=== PATIENT | male | born 1960 | race Caucasian/White ===

== ENCOUNTER 2017-09-05 12:57 | Inpatient (IN) | payer OTHER ==
[~2017-09-05] VITALS: Ht 167.6 cm; Wt 189.8 kg
[2017-09-05] VITALS (16 sets, daily range): BP systolic 88–114; BP diastolic 36–59
[2017-09-05] MEDS ORDERED: SODIUM CHLORIDE 0.9% 1000ML 1,000 ML IV STA ×2 (13:01→15:19)
[2017-09-05] MEDS ORDERED: ALBUTEROL SULF 0.083% NEB SOLN 3 ML NEB NEB STA (13:06)
[2017-09-05] MEDS ORDERED: IPRATROPIUM BROMIDE 0.02% 2.5 ML NEB NEB STA (13:06)
[2017-09-05] MEDS ORDERED: CEFTRIAXONE SOD 1 GM VIAL IV SCH (13:15)
[2017-09-05] MEDS ORDERED: CEFTAROLINE FOSAMIL ACETATE 400 MG in SODIUM CHLORIDE 0.9% 250ML 250 ML IV ONE (13:30)
[2017-09-05 13:35] LABS: BASOPHILS # (AUTO) 0.1 (0.0-0.1); BASOPHILS % 0.6 % (0.0-1.0); HEMATOCRIT 39.3 % (38.2-49.6); HEMOGLOBIN 13.3 g/dL (14.0-18.0); LYMPHOCYTES # (AUTO) 0.5 (1.0-3.2); LYMPHOCYTES % 4.9 % (18.0-39.1); MEAN CORPUSCULAR HEMOGLOBIN 29.6 pg (28-32); MEAN CORPUSCULAR HGB CONC 33.8 g/dL (31-35); MEAN CORPUSCULAR VOLUME 87.3 fL (81-99); MONOCYTES # (AUTO) 0.7 (0.2-0.8); MONOCYTES % 7.1 % (4.4-11.3); NEUTROPHILS # (AUTO) 8.8 (2.1-6.9); NEUTROPHILS % 86.6 % (38.7-80.0); PLATELET COUNT 111 x10e3/uL (140-360); RED CELL DISTRIBUTION WIDTH 15.6 % (11.7-14.4)
[2017-09-05 13:45] LABS: INR 1.24; PROTHROMBIN TIME 14.7 seconds (11.9-14.5)
[2017-09-05 13:46] LABS: PARTIAL THROMBOPLASTIN TIME 34.9 seconds (23.8-35.5)
[2017-09-05 13:55] LABS: ALBUMIN 2.9 g/dL (3.5-5.0); ALBUMIN/GLOBULIN RATIO 0.6 (0.8-2.0); ANION GAP 18.7 mmol/L (8-16); CALCIUM 8.4 mg/dL (8.4-10.2); CREATININE, SERUM 3.21 mg/dL (0.72-1.25); POTASSIUM 3.7 mmol/L (3.5-5.1)
[2017-09-05 13:58] LABS: B-TYPE NATRIURETIC PEPTIDE2 31.8 pg/mL (0-100)
[2017-09-05 14:14] LABS: CREATINE KINASE MB 52.7 ng/mL (0-5.0); THYROID STIMULATING HORMONE 2.291 uIU/mL (0.350-4.940)
[2017-09-05 14:23] LABS: BAND NEUTROPHILS % (MANUAL) 10 %; LYMPHOCYTES % (MANUAL) 3 % (19-48); MONOCYTES % (MANUAL) 6 % (3.4-9.0); NEUTROPHILS % (MANUAL) 81 % (40-74)
[2017-09-05 14:27] LABS: ANISOCYTOSIS SLIGHT; PLATELET ESTIMATE SLIGHTLY DECREASED; PLATELET MORPHOLOGY COMMENT FEW LARGE; RBC MORPHOLOGY COMMENT NORMAL
--- NOTE | 2017-09-05 14:55 | Diagnostic Imaging Report ---
PROCEDURE: Frontal and lateral views of the chest. COMPARISON: None. INDICATIONS: SHORTNESS OF BREATH, COUGH FINDINGS: Lines/tubes: None. Lungs: The lungs are moderately inflated. Diffuse interstitial and alveolar opacities with basilar predominance. Pleura: There is no pleural effusion or pneumothorax. Heart and mediastinum: Moderate cardiomegaly. Bones: No acute bony abnormality. IMPRESSION: Moderate cardiomegaly with diffuse pulmonary edema. Dictated by: Forrest Green M.D. on 09/05/2017 at 14:57 Electronically approved by: Forrest Green M.D. on 09/05/2017 at 14:57
[2017-09-05] MEDS ORDERED: SODIUM BICARBONATE 8.4% 150 ML in SODIUM CHLORIDE 0.45% 1,000 ML IV ONE (15:30)
[2017-09-05] MEDS: SODIUM BICARBONATE 8.4% SYRING 150 ML in DEXTROSE 5% 1,000 ML IV SCH (15:45)
[2017-09-05] MEDS ORDERED: SODIUM CHLORIDE 0.9% 1000ML 1,000 ML IV SCH (16:00)
--- OUTSIDE RECORDS SUMMARY | 2017-09-05 16:02 | XMS REPORT ---
[facility] Address Unknown Phone Unavailable Care Team Providers Care Portfolio Architect Name Role Phone CORY PEACE Unavailable Unavailable Problems This patient has no known problems. Allergies, Adverse Reactions, Alerts This patient has no known allergies or adverse reactions. Medications This patient has no known medications. Results Test Description Test Time Test Comments Text Results Atomic Results Result Comments CHEST 2 VIEWS [id number] [place], [place] [address] Patient Name: BOB MAC MR #: [id number] : 1960 Age/Sex: 57/M Req #: [id number] Adm Physician: Ordered by: SILVIO WOLFE WEAVING INSPECTOR Report #: [id number] Location: ER Room/Bed: Procedure: [id number] DX/CHEST 2 VIEWS Exam Date: Exam Time: REPORT STATUS: Signed PROCEDURE: Frontal and lateral views of the chest. COMPARISON: None. INDICATIONS: SHORTNESS OF BREATH, COUGH FINDINGS: Lines/tubes: None. Lungs: The lungs are moderately inflated. Diffuse interstitial and alveolar opacities with basilar predominance. Pleura: There is no pleural effusion or pneumothorax. Heart and mediastinum: Moderate cardiomegaly. Bones: No acute bony abnormality. IMPRESSION: Moderate cardiomegaly with diffuse pulmonary edema. Dictated by: Dimitri Rollins M.D. on 09/05/2017 at 14:57 Electronically approved by: Dimitri Rollins M.D. on 09/05/2017 at 14:57 Dictated By: DIMITRI ROLLINS MD 56 Transcribed By: KEDAR on 09/05/171456 COPY TO: SILVIO WOLFE NP
[2017-09-05] MEDS ORDERED: FLUCONAZOLE 100 MG/NS 50 ML 50 ML IV ONE (18:30)
--- NOTE | 2017-09-05 19:22 | Diagnostic Imaging Report ---
EXAMINATION: CHEST XRAY LINE PLACEMENT INDICATION: \S\LINE PLACEMENT VERIFICATION \S\[id number] \S\[id number] COMPARISON: Chest radiograph 09/05/2017 FINDINGS: AP view TUBES and LINES: Interval placement of right PICC with tip overlying the cavoatrial junction. LUNGS: Lungs are well inflated. Bibasilar atelectasis. Bilateral interstitial edema. PLEURA: No pleural effusion or pneumothorax. HEART AND MEDIASTINUM: The cardiac silhouette is partially included on the exam but continues to be enlarged.. BONES AND SOFT TISSUES: No acute osseous lesion. Soft tissues are unremarkable. UPPER ABDOMEN: No free air under the diaphragm. IMPRESSION: Right PICC with tip overlying the cavoatrial junction. Signed by: Dr. Savanna Coates M.D. on 09/05/2017 7:19 PM
[2017-09-05 19:27] LABS: CLARITY,URINE CLEAR (CLEAR); COLOR,URINE YELLOW (YELLOW); KETONES,URINE NEGATIVE (NEGATIVE); LEUKOCYTE ESTERASE ,URINE NEGATIVE (NEGATIVE); NITRITE,URINE NEGATIVE (NEGATIVE); PROTEIN,URINE DIPSTICK 1+ (NEGATIVE); URINE UROBILINOGEN 0.2 mg/dL (0.2 - 1)
[2017-09-05 19:28] LABS: BILIRUBIN,URINE 1+ (NEGATIVE)
[2017-09-05] MEDS: AZITHROMYCIN 500MG/NS 250 ML 250 ML IV SCH (19:34)
[2017-09-05] MEDS: CEFTRIAXONE SOD 1 GM VIAL IV SCH (19:34)
[2017-09-05 19:42] LABS: BACTERIA,URINE FEW /HPF
[2017-09-05 19:43] LABS: AMORPHOUS SEDIMENT,URINE MODERATE (FEW)
[2017-09-05 20:11] LABS: ANION GAP 14.4 mmol/L (8-16); CALCIUM 7.5 mg/dL (8.4-10.2); CREATININE, SERUM 3.23 mg/dL (0.72-1.25); POTASSIUM 3.4 mmol/L (3.5-5.1)
[2017-09-05] MEDS ORDERED: SODIUM CHLORIDE 0.9% 250ML 250 ML ONE (21:18)
[2017-09-05] MEDS: NYSTATIN 100,000 UNITS/GM CRM 30GM TUBE TOP SCH (21:37)
[2017-09-05] MEDS ORDERED: ATORVASTATIN CA20 MG PO (22:01)
[2017-09-05] MEDS ORDERED: LOSARTAN POTAS100 MG PO (22:03)
[2017-09-06] VITALS (77 sets, daily range): BP systolic 71–125; BP diastolic 27–82
[2017-09-06] MEDS: SODIUM BICARBONATE 8.4% SYRING 150 ML in DEXTROSE 5% 1,000 ML IV SCH ×2 (00:25→05:57)
[2017-09-06] MEDS ORDERED: SODIUM CHLORIDE 0.9% 1000ML 500 ML IV ONE (03:00)
[2017-09-06] MEDS ORDERED: SODIUM CHLORIDE 0.9% 500ML 500 ML ONE (03:07)
--- NOTE | 2017-09-06 05:44 | Diagnostic Imaging Report ---
CHEST SINGLE (PORTABLE), 09/06/2017 5:29 AM Technique: CHEST SINGLE (PORTABLE) Comparison: Previous day Clinical history: Shortness of breath Findings: See Impression Impression: Markedly limited by portable technique, motion and soft tissue attenuation 1. Lines/Tubes: Right PICC again noted, tip poorly seen 2. Stable cardiomediastinal silhouette. 3. Central vascular congestion and/or edema. No large effusion. Signed by: Dr Jenny Curry MD on 09/06/2017 5:41 AM
[2017-09-06 06:13] LABS: BASOPHILS % 0.1 % (0.0-1.0); HEMATOCRIT 30.9 % (38.2-49.6); LYMPHOCYTES # (AUTO) 0.4 (1.0-3.2); MEAN CORPUSCULAR HGB CONC 34.6 g/dL (31-35); MEAN CORPUSCULAR VOLUME 86.6 fL (81-99); MONOCYTES # (AUTO) 0.7 (0.2-0.8); NEUTROPHILS # (AUTO) 5.9 (2.1-6.9); NEUTROPHILS % 82.4 % (38.7-80.0); RED BLOOD COUNT 3.57 x10e6/uL (4.3-5.7); RED CELL DISTRIBUTION WIDTH 15.2 % (11.7-14.4)
[2017-09-06 06:19] LABS: HEMOGLOBIN 10.7 g/dL (14.0-18.0); PLATELET COUNT 80 x10e3/uL (140-360)
[2017-09-06 06:32] LABS: INR 1.33; PROTHROMBIN TIME 15.5 seconds (11.9-14.5)
[2017-09-06 06:43] LABS: ALBUMIN 2.2 g/dL (3.5-5.0); ALBUMIN/GLOBULIN RATIO 0.6 (0.8-2.0); ANION GAP 16.1 mmol/L (8-16); CALCIUM 7.2 mg/dL (8.4-10.2); CREATININE, SERUM 3.52 mg/dL (0.72-1.25); POTASSIUM 3.1 mmol/L (3.5-5.1)
[2017-09-06 06:54] LABS: MAGNESIUM 1.6 MG/DL (1.3-2.1); PHOSPHORUS 4.6 MG/DL (2.3-4.7)
[2017-09-06] MEDS ORDERED: POTASSIUM CHLORIDE 20 MEQ TAB CR PO STA (08:00)
[2017-09-06] MEDS: SODIUM CHLORIDE 0.9% 1000ML 1,000 ML IV SCH ×2 (08:30→18:45)
[2017-09-06] MEDS: NYSTATIN 100,000 UNITS/GM CRM 30GM TUBE TOP SCH ×2 (09:30→18:11)
--- NOTE | 2017-09-06 10:01 | Diagnostic Imaging Report ---
This report includes an Addendum and supersedes previous reports for this exam. PROCEDURE:US RETROPERITONEAL ( KIDNEY ). COMPARISON:None. INDICATIONS:Decreased Urine Output TECHNIQUE: Michelle-scale and color sonographic images of the bilateral kidneys and bladder where obtained in transverse and longitudinal planes. The examination is limited due to increased bowel gas and large body habitus. FINDINGS: RIGHT KIDNEY: 10.1 cm, cortex 1.9 cm Cysts: None. Solid masses: None. Stones: None. Hydronephrosis: None. Echogenicity: Normal. LEFT KIDNEY: 9.3 cm, cortex 2.0 cm Cysts: None. Solid masses: None. Stones: None. Hydronephrosis: None. Echogenicity: Normal. Bladder: Diggs catheter is present in a decompressed urinary bladder. Prostate: None visualized. CONCLUSION: No acute sonographic abnormality. Dictated by: Boris Lopez M.D. on 09/06/2017 at 10:03 Electronically approved by: Boris Lopez M.D. on 09/06/2017 at 10:03 ADDENDUM: Incidental note is made of the liver measuring 21.9 cm and the right midclavicular line. The hepatic parenchyma demonstrates diffuse increased echogenicity. Impression: Hepatic steatosis. Hepatomegaly. Dictated by: Boris Lopez M.D. on 09/06/2017 at 16:01 Electronically approved by: Boris Lopez M.D. on 09/06/2017 at 16:01
[2017-09-06] MEDS ORDERED: ACETAMINOPHEN 325 MG TAB PO PRN (10:30)
[2017-09-06] MEDS: AZITHROMYCIN 500MG/NS 250 ML 250 ML IV SCH ×2 (18:16→20:19)
[2017-09-06] MEDS: CEFTRIAXONE SOD 1 GM VIAL IV SCH ×2 (18:16→20:19)
--- NOTE | 2017-09-06 22:12 | Diagnostic Imaging Report ---
EXAM: US ABDOMEN COMPLETE DATE: 09/06/2017 12:00 AM INDICATION: Hepatic steatosis COMPARISON: None TECHNIQUE: Transverse and longitudinal gonzalez scale and color doppler sonographic images of the upper abdomen were obtained. FINDINGS: Evaluation somewhat degraded by body habitus and poor visualization LIVER 22.1 cm in the right midclavicular line. Increased echogenicity, normal contour, no masses. SPLEEN 14.0 cm in maximum diameter. GALLBLADDER No stones, sludge, wall-thickening or pericholecystic fluid. Negative sonographic Velasquez's sign. BILE DUCTS No intra nor extra-hepatic biliary dilation. Common bile duct measures 0.4 cm PANCREAS: Not seen due to overlying bowel gas. RIGHT KIDNEY: 11.7 cm Echogenicity: Normal Collecting System: No hydronephrosis Stones: None Cyst/Mass: None LEFT KIDNEY: 11.8 cm Echogenicity: Normal Collecting System: No hydronephrosis Stones: None Cyst/Mass: None VESSELS: Aorta: Not well-visualized Inferior Vena Cava: Visualized portions are unremarkable Main Portal Vein: 1.4 cm, with hepatopetal flow. FREE FLUID: None IMPRESSION: 1. Hepatic steatosis and hepatomegaly. 2. Splenomegaly and mild enlargement of the main portal vein which can be secondary to portal hypertension. No ascites. Signed by: Dr Jenny Curry MD on 09/06/2017 10:09 PM
--- NOTE | 2017-09-06 23:09 | Consultation ---
DATE OF CONSULTATION: History predominantly from and patient. HISTORY: This is a 57-year-old white gentleman with underlying history of sleep apnea, possible COPD, underlying hypertension. He denies prior history of any renal insufficiency or kidney stone disease. Admitted with chills and cough, possibility of pneumonia. He was diagnosed with pneumonia as an outpatient. Renal consulted because of acute kidney injury. Patient had a remote history of kidney stone disease, but no recurrence. He denies any prostate issues, currently lying supine, admits to cough with phlegm production, does not remember the color, but denies any shortness of breath or orthopnea. Workup includes chest x-ray, some evidence of hilar congestion on the right with right-sided infiltrate, lower lobe consistent with pneumonia. Past history also significant for morbid obesity. LABORATORY TESTS: White count of 7.1 with a hemoglobin 10.7. He has got a platelet count of 80,000. Sodium 132, potassium 3.1, bicarbonate 21 with a BUN of 60, creatinine 3.52 with AST and ALT elevated and albumin of 2.2, total protein 6.1. Workup included a chest x-ray, please see official report. Also had a kidney ultrasound done shows 10.1 and 9.3 cm kidneys. No evidence of hydronephrosis. I had requested nurse to place an indwelling Diggs catheter, he is relatively nonoliguric. Blood and urine cultures are pending. CURRENT MEDICATIONS: Please see MAR for details, but is on ceftriaxone 1 g IV q.24. Received K-Dur 20 mEq x2 doses, total of 40 mEq. Currently on normal saline IV at 100 mL an hour. He was given fluconazole one time. He is on azithromycin 500 mg IV piggyback every day. SOCIAL HISTORY: . Does not smoke or drink. FAMILY HISTORY: Significant for hypertension. PHYSICAL EXAMINATION: GENERAL: Awake, alert, sitting up, in no apparent distress. VITAL SIGNS: With a blood pressure of 100/50, pulse rate 93, afebrile. HEENT: Head and neck: Cornea clear. Oral mucosa dry. LUNGS: Supine exam, but difficult to fully Dictation ended abruptly, 3 minutes 4 seconds. Job#: [id number]
[2017-09-07] VITALS (88 sets, daily range): BP systolic 61–140; BP diastolic 32–112
--- NOTE | 2017-09-07 00:51 | Consultation ---
DATE OF CONSULTATION: September 06, 2017 HEMATOLOGY/ONCOLOGY CONSULTATION REASON FOR CONSULTATION: Evaluation and management of the patient with thrombocytopenia and anemia. HISTORY OF PRESENT ILLNESS: Mr. Key is a very pleasant 57-year-old gentleman with no significant past medical history other than hypertension, hyperlipidemia and obesity, admitted through the emergency department due to sepsis causing acute rhabdomyolysis, renal failure and dehydration. Apparently, the patient has a history of not feeling well and treated for what sounds like a viral syndrome. He did receive Levaquin for presumed URI. In the emergency department, he was noted to have markedly elevated creatinine up to 3.5, thrombocytopenia and anemia. The patient was started on IV antibiotics and admitted to the intensive care unit. Hematology/oncology has been consulted to assist with the management of anemia and thrombocytopenia. Presently, the patient is lying comfortably and not in acute distress. He has been having intermittent fever with T-max 100.1. He denied taking any recent medications other than Levaquin. He does not recall any hematologic disorder or kidney disorder. He had been very active. The only thing he is suffering is cellulitis of the left lower extremity for which he had been treated by primary care provider with improved symptoms. PAST MEDICAL HISTORY 1. Hypertension. 2. Hyperlipidemia. 3. Obesity. PAST SURGICAL HISTORY: None. SOCIAL HISTORY: He denies history of smoking, alcohol use or illicit drug use. He lives in [place] with his . ALLERGIES: NO KNOWN DRUG ALLERGIES. CURRENT MEDICATIONS: Reviewed per electronic medical record. REVIEW OF SYSTEMS: A 14-point review of systems negative except as mentioned above in history of present illness. PHYSICAL EXAMINATION VITAL SIGNS: Reviewed per electronic medical record. HEENT: Extraocular movements intact. Pupils equal, round and reactive to light. NECK: Supple. CV: S1 and S2 audible. RESPIRATORY: Bilateral air entry. ABDOMEN: Soft. Positive bowel sounds. EXTREMITIES: Positive trace swelling in the lower extremities, as well as left lower extremity cellulitis. LABORATORY DATA: White blood cell count of 7.1, hemoglobin 10.7, hematocrit 30.9, and platelets 80,000. BUN 53, creatinine 0.2. CK 12,416. ASSESSMENT AND PLAN: Mr. Key is a very pleasant 57-year-old gentleman with no significant past medical history presented to the emergency department with viral symptoms. He was noted to have acute rhabdomyolysis probably causing renal failure. He was also dehydrated and started on intravenous fluids. His counts noted to be low, especially thrombocytopenia with drop in platelet count from 111,000 at the time of admission to 80,000. Hematology/oncology had been consulted to assist with the management. I reviewed the record. Overall, it appeared that he was having bone marrow suppression probably caused by viral syndrome or underlying infection/sepsis. At this point, I will get baseline workup and closely monitor. His counts are not critical range, so will not require any transfusion at least at this point. Thank you, Dr. Huff, for the consult. I will continue to be available. Please call with any questions. Job#: [id number] DIAN
[2017-09-07] MEDS: SODIUM CHLORIDE 0.9% 1000ML 1,000 ML IV SCH (04:30)
[2017-09-07 05:53] LABS: BASOPHILS % 0.2 % (0.0-1.0); EOSINOPHILS % 0.1 % (0.0-6.0); HEMATOCRIT 32.5 % (38.2-49.6); HEMOGLOBIN 10.9 g/dL (14.0-18.0); LYMPHOCYTES # (AUTO) 0.6 (1.0-3.2); MEAN CORPUSCULAR HEMOGLOBIN 29.4 pg (28-32); MEAN CORPUSCULAR HGB CONC 33.5 g/dL (31-35); MEAN CORPUSCULAR VOLUME 87.6 fL (81-99); MONOCYTES % 11.1 % (4.4-11.3); NEUTROPHILS # (AUTO) 7.1 (2.1-6.9); NEUTROPHILS % 80.5 % (38.7-80.0); PLATELET COUNT 85 x10e3/uL (140-360); RED BLOOD COUNT 3.71 x10e6/uL (4.3-5.7); RED CELL DISTRIBUTION WIDTH 15.6 % (11.7-14.4)
[2017-09-07 06:11] LABS: ALBUMIN 2.1 g/dL (3.5-5.0); ALBUMIN/GLOBULIN RATIO 0.5 (0.8-2.0); ANION GAP 13.1 mmol/L (8-16); CALCIUM 7.4 mg/dL (8.4-10.2); CREATININE, SERUM 2.75 mg/dL (0.72-1.25); POTASSIUM 3.1 mmol/L (3.5-5.1)
[2017-09-07] MEDS ORDERED: LOPERAMIDE HCL 2 MG CAP PO ONE (07:30)
--- NOTE | 2017-09-07 08:04 | Diagnostic Imaging Report ---
EXAMINATION: CHEST SINGLE (PORTABLE) 09/07/2017 7:33 AM COMPARISON: Chest radiograph from 09/06/2017 INDICATION: Pneumonia DISCUSSION: LINES: Right upper extremity PICC line with tip in the region of the SVC, unchanged LUNGS: Diffuse interstitial opacities, slightly worsened before. PLEURA: Small pleural effusions may be present HEART AND MEDIASTINUM: The cardiomediastinal silhouette is unchanged. BONES AND SOFT TISSUES: No acute osseous lesion. The soft tissues are normal. IMPRESSION: Diffuse interstitial opacities, appearing slightly worse than before. This could represent pulmonary edema or atypical pneumonia. Jaret Pennington MD Signed by: Dr. Jaret Pennington M.D. on 09/07/2017 8:01 AM
[2017-09-07 08:10] LABS: RETICULOCYTE % 0.5 % (0.8-2.2)
[2017-09-07] MEDS ORDERED: POTASSIUM CHLORIDE 20 MEQ TAB CR PO NR ×2 (08:35→10:55)
[2017-09-07] MEDS: ALBUTEROL/IPRATROPIUM 3 ML NEB NEB PRN (08:51)
[2017-09-07 08:58] LABS: FERRITIN 1029.77 ng/mL (21.81-274.66)
[2017-09-07] MEDS ORDERED: FUROSEMIDE INJ 10 MG/ML 2 ML VIAL IV NR (09:00)
[2017-09-07 09:32] LABS: FOLATE 6.9 ng/mL (7.0-15.4)
[2017-09-07 10:01] LABS: ABG PH 7.33 (7.31-7.41)
[2017-09-07 10:02] LABS: ABG HCO3 24 mmol/L (23-28); ABG PCO2 46 mmHg (41-51); ABG PO2 71 mmHg (80-105)
[2017-09-07] MEDS ORDERED: VANCOMYCIN 1GM/NS 250 ML 250 ML IV SCH (10:15)
[2017-09-07] MEDS ORDERED: FUROSEMIDE INJ 10 MG/ML 4 ML VIAL IV NR (10:45)
[2017-09-07] MEDS ORDERED: METHYLPREDNISOLONE SOD SUCC 125 MG/2ML VIAL IV ONE (11:00)
[2017-09-07] MEDS: NYSTATIN 100,000 UNITS/GM CRM 30GM TUBE TOP SCH ×2 (11:07→17:44)
[2017-09-07] MEDS ORDERED: VANCOMYCIN 1GM/NS 250 ML 250 ML IV STA (13:10)
--- NOTE | 2017-09-07 13:49 | Consultation ---
DATE OF CONSULTATION: September 07, 2017 CARDIOLOGY CONSULTATION REASON FOR CONSULTATION: Bacteremia and evaluation for possible MARCY. HISTORY OF PRESENT ILLNESS: Mr. Key is a pleasant 57-year-old man with a history of hypertension, dyslipidemia and morbid obesity, who presents with sepsis, acute rhabdomyolysis, acute renal failure, and dehydration in the setting of nonspecific symptoms for which he had received Levaquin for persistent URI. He has also found to be anemic and thrombocytopenic. Bacteremia observed. Growing Staph aureus in various blood cultures. His echocardiogram demonstrated mild concentric hypertrophy. Left ventricular ejection fraction was 50% to 55%, mildly dilated right ventricle, trace tricuspid regurgitation. He is currently using BiPAP for worsening respiratory distress, and has been given diuretics with good urine output. REVIEW OF SYSTEMS: A 12-system review negative except for as noted above. SOCIAL HISTORY: . No smoking or alcohol. No drugs. FAMILY HISTORY: Significant for hypertension. PAST MEDICAL HISTORY: As per HPI. PHYSICAL EXAMINATION VITALS: Temperature 99.1, heart rate 103, respiratory rate 22, blood pressure 105/46, and O2 sat 96% on nasal cannula. GENERAL: In mild distress. Using BiPAP. Morbidly obese and unable to assess JVD. CHEST: Transiently decreased breath sounds in bilateral bases. CARDIOVASCULAR: Regular rate and rhythm. Normal S1 and S2. No additional heart sounds. No murmurs noted. No rubs noted. ABDOMEN: Morbidly obese and soft. EXTREMITIES: Edema on bilateral lower extremities. CARDIOVASCULAR MEDICATIONS: Reviewed. 1. Furosemide 40 mg once followed by 20 mg b.i.d. IV. 2. Resuming vancomycin IV. STUDIES: Reviewed. White blood cells 8.3, hemoglobin 10.9 and platelets 85,000. INR 1.3. Sodium 135, potassium 3.1, chloride 103, bicarbonate 22, BUN 63, creatinine 2.7, glucose 130, calcium 7.4. Iron 29, TIBC 207 and percent saturation 14. Transferrin 148. Ferritin 1029. Total bilirubin 0.5, AST 146, ALT 105, alk phos 98. CK 4571 down from 14,214. Total protein 6.2, albumin 2.1. Blood cultures with Staph aureus. Chest x-ray with diffuse interstitial opacities, worse than before. ASSESSMENT 1. Acute respiratory distress in the setting of pulmonary infiltrates, likely pulmonary edema versus pneumonia. 2. Staphylococcus aureus bacteremia. 3. Preserved left ventricular systolic function. 4. Morbid obesity. 5. Hypertension. 6. Dyslipidemia. 7. Thrombocytopenia. 8. Anemia. 9. Acute renal failure. RECOMMENDATIONS 1. Continue diuretics. 2. Antibiotics per primary service. 3. Will plan on transesophageal echocardiogram once the patient's volume leblanc and respiratory leblanc stabilized. For now, continue medical optimization. Thank you, Dr. Huff, for this consult. Job#: [id number] MA
[2017-09-07] MEDS ORDERED: RIFAMPIN 300 MG CAP PO SCH (14:00)
--- NOTE | 2017-09-07 14:43 | Consultation ---
DATE OF CONSULTATION: September 07, 2017 PULMONARY/CRITICAL CARE MEDICINE CONSULT REFERRING PHYSICIAN: Dr. Huff. Patient belongs to [facility]. HISTORY: Mr. Key is a pleasant 57-year-old gentleman with multiorgan dysfunction. Patient at this time with increasing dyspnea. Patient had evaluation and found he was in renal failure. Creatinine 2.8 today, not known to have kidney failure in the past. Patient with chest x-ray showing small basilar opacities when he came in, and these opacities are enlarging. Furthermore, LFTs with elevation to 100s range. CK is 4571. Albumin is 2.1. He had malaise and subjective fevers and was treated as nonspecific viral syndrome with coverage with antibiotics. However, blood cultures are already growing Staphylococcus aureus on day 1 of hospitalization. As he is getting more and more short of breath, he is moved to the ICU and I am consulted. He is given BiPAP for rescue due to extensive shortness of breath, 7.33/46/71/24. Patient was noted in early June to have a left leg cellulitis that took a couple months to heal per the . Area involved probably 8 inches in length grossly. This was treated in the office setting, and to the patient's knowledge there were no cultures ever taken. PAST MEDICAL HISTORY: Hypertension, hyperlipidemia, obesity, obstructive sleep apnea on CPAP possibly at 10 cm of water. PAST SURGICAL HISTORY: None. MEDICATIONS: Medication list reviewed per the electronic record. Currently started on vancomycin and Lasix. He received azithromycin and ceftriaxone yesterday. Other medicines per record. ALLERGIES: NO KNOWN DRUG ALLERGIES. SOCIAL HISTORY: No smoking, no drinking, no drugs. He lives in [place] with his . He is a fabricator for , and he welds on a daily basis. Patient does not do sandblasting nor has asbestos exposure that he knows of. FAMILY HISTORY: Noncontributory. REVIEW OF SYSTEMS: Cannot get reasonably well as he is not able to speak with respiratory support device on. PHYSICAL EXAMINATION VITAL SIGNS: Afebrile. Vital signs noted reviewed per electronic record. On the BiPAP he is only mildly tachypneic with sustained blood pressure. HEENT: Normocephalic, atraumatic. NECK: Supple. Throat midline. Large neck. LUNGS: Bilateral air entry is decreased, a few rhonchi. CARDIOVASCULAR: S1 and S2. No murmurs, rubs or gallops. ABDOMINAL: Soft, nontender. EXTREMITIES: No clubbing, no cyanosis. There is trace leg edema. INTEGUMENT: No rash, no purpura. LABS: Potassium 3.1, chloride 103, bicarbonate 22, BUN 63, creatinine 2.8. White count 9, hematocrit 33, platelets 85. AST 146, ALT 105. CK 4571. Ferritin level 1030. IMPRESSION AND PLAN 1. Acute respiratory failure, bilateral positive airway pressure salvage. 2. Acute kidney failure. 3. Acute liver failure evolving. 4. Thrombocytopenia, hematologic failure, likely disseminated intravascular coagulation in evolution. 5. High-grade Staphylococcus aureus septicemia. 6. Recent left leg cellulitis and soft skin infection. No definite evidence of deep active infection there although source localization needs to be done. 7. Hypertension. 8. Hyperlipidemia. 9. Obstructive sleep apnea. I have discussed the plan in detail with nursing. Trial diuretics. Antibiotics need to be maximally increased expeditiously. Vancomycin higher dose and Rocephin will be given. We need to check peak levels for vancomycin given the dire state of his illness. Continue flushing kidneys for now. Repeat electrolytes today. Will follow along closely. Greater than 30 minutes in direct care today, multiple coordination with team and staff. Will follow along closely. Job#: [id number] ELDA
[2017-09-07 16:06] LABS: ALBUMIN 2.3 g/dL (3.5-5.0); ALBUMIN/GLOBULIN RATIO 0.5 (0.8-2.0); ANION GAP 11.6 mmol/L (8-16); CALCIUM 8.1 mg/dL (8.4-10.2); CREATININE, SERUM 2.1 mg/dL (0.72-1.25); MAGNESIUM 1.8 MG/DL (1.3-2.1); POTASSIUM 3.6 mmol/L (3.5-5.1)
[2017-09-07] MEDS ORDERED: CEFAZOLIN SOD 1 GM/NS 50ML 50 ML IV SCH (16:45)
[2017-09-07] MEDS ORDERED: DIATRIZOATE MEGL/DIATRIZOA SOD 30 ML BTL PO ONE (16:49)
--- NOTE | 2017-09-07 17:25 | Consultation ---
DATE OF CONSULTATION: REASON FOR CONSULTATION: Sepsis and bacteremia. HISTORY OF PRESENT ILLNESS: Thank you so much for asking to see this patient who is a 57-year-old white male with history of morbidly obese patient, apparently was in his usual state of good health when he started to feel really sick, went to see his doctor the next day. Apparently, he was contacted saying that his kidneys are not working well and there was infection in his blood, so he was sent to the emergency room. The is telling me that he was really weak. She had to call 911 when she first brought him here because she could not move him around. This patient who has a history of hypertension in a morbidly obese patient is currently alert and oriented, but when he first came, he was seen by cardiology, he was seen by hematology-oncology, and critical care. This patient is currently alert and oriented, on BiPAP, but he looks comfortable. PAST MEDICAL HISTORY: Hypertension, hyperlipidemia, obesity. PAST SURGICAL HISTORY: Denies. SOCIAL HISTORY: There is no smoking, drug abuse, or alcohol abuse. FAMILY HISTORY: Hypertension. REVIEW OF SYSTEMS GENERAL: At present time, he is doing well. HEENT: There is no headache, visual changes, or hearing changes. GI: There is no nausea, no vomiting, and no diarrhea. CARDIAC: There is no arrhythmia. NEUROLOGICAL: No seizure activity. SKIN: There are no other rashes. JOINT: No joint edema. He denies any pain. LABORATORY DATA: Blood culture is showing Staphylococcus aureus on admission September 05, which we do not have the sensitivity yet. His white count on admission was 10.11, hemoglobin 13, and platelets of 111. Sodium 135, potassium 3.1, and creatinine 2.75. His iron was 29 with TIBC 207. Liver enzymes slightly elevated at 146 and 105, total protein 6.2. PHYSICAL EXAMINATION GENERAL: He is alert and oriented. His weight is 426 pounds, height 66 inches. HEENT: Normocephalic. NECK: Supple. CHEST: Few crackles. COR: S1 and S2. No murmurs. ABDOMEN: Soft. IMPRESSION AND PLAN 1. Sepsis bacteremia, Staphylococcus aureus: He is currently on vancomycin. We will discontinue rifampin since there is really no foreign body. Recheck blood cultures, check sed rate, check CR protein. He already has a PICC line. Daily CBC and chem panel. We will get a vancomycin level. We will start him on nafcillin in the meantime until we get the blood culture and sensitivity. He would need at least 8 weeks of IV antibiotic. Ideally, I would like to have a CT chest, abdomen, and pelvis with contrast, at least oral contrast. I am not sure if he will fit in the machine. Discussed with the and the patient that he is ill overall, and I think the issue of his obesity is really crucial. 1. Chronic kidney disease. 2. Anemia. 3. We will follow. Job#: [id number] MARCUS
[2017-09-07] MEDS: CEFAZOLIN SOD 1 GM VIAL IV SCH (17:46)
[2017-09-07] MEDS: FUROSEMIDE INJ 10 MG/ML 2 ML VIAL IV SCH (17:48)
--- NOTE | 2017-09-07 20:49 | Diagnostic Imaging Report ---
EXAM: CT CHEST WO, CT ABDOMEN/PELVIS WO DATE: 09/07/2017 4:36 PM INDICATION: Shortness of breath, concern for ABSCESS COMPARISON: None TECHNIQUE: Multidetector CT scanning of the chest was performed. Coronal and sagittal multiplanar reformations were obtained. IV Contrast: 0 ml Isovue 370/300 FINDINGS: Marked motion artifact, noise related to body habitus and lack of IV contrast significantly degrades evaluation. LINES and TUBES: Right IJ approach central venous catheter terminates in the high right atrium. Diggs catheter in place. LUNGS/AIRWAYS/PLEURA: Poorly assessed due to motion. Small bilateral effusions with patchy and more diffuse geographic groundglass/consolidative opacities. HEART AND MEDIASTINUM: Mild cardiomegaly without pericardial effusion. No gross adenopathy. HEPATOBILIARY/GALLBLADDER: Poorly assessed. No gross abnormality SPLEEN: No splenomegaly. PANCREAS: Grossly unremarkable ADRENALS: Left adrenal 1 cm nodular nodularity. KIDNEYS/URETERS: No hydronephrosis. GI TRACT: Diffuse dilation of the colon, best appreciated on the shot hole driller. Appendix is not visualized. PELVIC ORGANS/BLADDER: Bladder decompressed with a Diggs. LYMPH NODES: Poorly assessed VESSELS: Atherosclerotic calcifications. PERITONEUM / RETROPERITONEUM: No free air or fluid. BONES/SOFT TISSUES: Grossly unremarkable IMPRESSION: Evaluation significantly degraded by motion, noise, and lack of IV contrast. 1. Bilateral pulmonary opacities which may reflect edema and/or infection with small effusions. 2. Colonic ileus. Recommend radiographic follow-up. 3. No evidence of abscess. Signed by: Dr Jenny Curry MD on 09/07/2017 8:45 PM
[2017-09-08] VITALS (89 sets, daily range): BP systolic 79–166; BP diastolic 44–89
[2017-09-08] MEDS: CEFAZOLIN SOD 1 GM VIAL IV SCH ×2 (05:00→16:38)
[2017-09-08] MEDS: FUROSEMIDE INJ 10 MG/ML 2 ML VIAL IV SCH ×2 (06:00→16:39)
[2017-09-08 06:04] LABS: BASOPHILS % 0.2 % (0.0-1.0); EOSINOPHILS % 0.1 % (0.0-6.0); HEMATOCRIT 37.6 % (38.2-49.6); HEMOGLOBIN 12.5 g/dL (14.0-18.0); LYMPHOCYTES # (AUTO) 0.7 (1.0-3.2); LYMPHOCYTES % 6.3 % (18.0-39.1); MEAN CORPUSCULAR HEMOGLOBIN 29.4 pg (28-32); MEAN CORPUSCULAR HGB CONC 33.2 g/dL (31-35); MEAN CORPUSCULAR VOLUME 88.5 fL (81-99); MONOCYTES # (AUTO) 0.7 (0.2-0.8); MONOCYTES % 6.3 % (4.4-11.3); NEUTROPHILS # (AUTO) 9.8 (2.1-6.9); NEUTROPHILS % 85.1 % (38.7-80.0); PLATELET COUNT 121 x10e3/uL (140-360); RED BLOOD COUNT 4.25 x10e6/uL (4.3-5.7); RED CELL DISTRIBUTION WIDTH 15.7 % (11.7-14.4)
--- NOTE | 2017-09-08 06:04 | Diagnostic Imaging Report ---
CHEST SINGLE (PORTABLE), 09/08/2017 5:00 AM Technique: CHEST SINGLE (PORTABLE) Comparison: Previous day Clinical history: Pneumonia Findings: See Impression Impression: Markedly limited by portable technique and overlying soft tissue attenuation 1. Lines/Tubes: Stable right PICC over the high right atrium 2. Stable enlarged cardiomediastinal silhouette. 3. Increased patchy opacities in keeping with reported pneumonia. Possible underlying edema and layering pleural effusions. Signed by: Dr Jenny Curry MD on 09/08/2017 6:00 AM
[2017-09-08 06:31] LABS: ANION GAP 13.1 mmol/L (8-16); CALCIUM 8.4 mg/dL (8.4-10.2); CREATININE, SERUM 1.6 mg/dL (0.72-1.25); MAGNESIUM 2.1 MG/DL (1.3-2.1); PHOSPHORUS 2.6 MG/DL (2.3-4.7); POTASSIUM 3.1 mmol/L (3.5-5.1)
[2017-09-08] MEDS ORDERED: VANCOMYCIN 1GM/NS 250 ML 250 ML IV ONE (07:15)
[2017-09-08] MEDS: NYSTATIN 100,000 UNITS/GM CRM 30GM TUBE TOP SCH ×2 (08:09→16:27)
[2017-09-08] MEDS ORDERED: AZITHROMYCIN 500MG/NS 250 ML 250 ML IV SCH (09:00)
[2017-09-08] MEDS ORDERED: CEFTRIAXONE SOD 1 GM VIAL IV SCH (09:00)
[2017-09-08] MEDS ORDERED: POTASSIUM CHLORIDE 20 MEQ TAB CR PO ONE (11:00)
[2017-09-08] MEDS ORDERED: FUROSEMIDE INJ 10 MG/ML 4 ML VIAL IV ONE (11:00)
[2017-09-08] MEDS ORDERED: POTASSIUM CHLORIDE 20MEQ/100ML 100 ML IV ONE (11:00)
[2017-09-08] MEDS: ALBUTEROL/IPRATROPIUM 3 ML NEB NEB PRN ×2 (11:20→15:20)
[2017-09-08] MEDS ORDERED: ENOXAPARIN 30 MG/0.3 ML SYR SC ONE (11:45)
--- NOTE | 2017-09-08 12:37 | Progress Note ---
DATE: September 08, 2017 PULMONARY MEDICINE PROGRESS NOTE SUBJECTIVE: Mr. Key was seen and examined at bedside. He is on 15 liters per minute high-flow nasal cannula. Oxygen saturation is 89%. The patient continues to have BiPAP usage for the majority of the day although he just took off the BiPAP when came in. Patient had large urine diuresis although today urine output is starting to slow down. His creatinine is much better. He, however, remains more dyspneic today, and coughing is more difficult on him. CAT scan done yesterday showed no surprises and no definite sources of staphylococcus although there were bilateral ground-glass opacities that may or may not be the primary source of his staphylococcus. REVIEW OF SYSTEMS: No headaches, no bleeding. OBJECTIVE VITAL SIGNS: Afebrile. Vital signs noted per electronic record. GENERALLY: No acute distress, alert and calm. HEENT: Normocephalic, atraumatic. NECK: Supple. Throat midline. LUNGS: Bilateral air entry, a few rhonchi. CARDIOVASCULAR: S1 and S2. No murmurs, rubs or gallops. ABDOMINAL: Soft, obese, nontender. EXTREMITIES: No clubbing, no cyanosis. There is the lower extremity edema. INTEGUMENT: No rash. No purpura. LABS: Potassium 3.1, creatinine 1.6. White count 12, hematocrit 37, platelets 121. IMPRESSION AND PLAN 1. Abnormal chest radiography, possible primary versus secondary pneumonitis. 2. Methicillin-sensitive Staphylococcus aureus bacteremia. 3. Recent left leg cellulitis. 4. Acute hypoxic hypercapnic respiratory failure, on bilateral positive airway pressure salvage. 5. Acute kidney injury. 6. Thrombocytopenia, slightly improved today. Continue high doses of antibiotics. Will switch to Ancef after getting some initial vancomycin over the last day. Patient will have potassium repletion. Follow up urine output and the creatinine for further improvement. Patient will have continued close followup in the ICU. We are hopeful that he does not need to be intubated, but we are not sure if he is going to be able to turn around prior to the need. High-dose DVT prophylaxis is being recommended with Lovenox. Job#: [id number] EV
[2017-09-08] MEDS: DIPHENOXYLATE/ATROPINE TAB PO SCH ×2 (13:30→16:38)
--- NOTE | 2017-09-08 14:36 | Progress Note ---
DATE: September 08, 2017 CARDIOLOGY PROGRESS NOTE SUBJECTIVE: Shortness of breath, on high-flow nasal cannula. OBJECTIVE: VITAL SIGNS: Temperature 98.4, heart rate 76, respiratory rate 24, blood pressure 117/70. O2 sat 91% on 15 liters per minute high-flow nasal cannula. GENERAL: In no acute distress. Morbidly obese. CHEST: Decreased breath sounds bilateral bases. CARDIOVASCULAR: Regular rate and rhythm. Normal S1 and S2. ABDOMEN: Soft. EXTREMITIES: With edema 1+ bilateral lower extremities. CARDIOVASCULAR MEDICATIONS: 1. Furosemide 20 mg b.i.d. IV. 2. Lovenox 30 mg subcutaneous q.12 hours. LABORATORY STUDIES: White blood cells 11.5, hemoglobin 12.5, platelets 121. Sodium 141, potassium 3.1, chloride 106, bicarbonate 25, BUN 47, creatinine 1.6, glucose 193, magnesium 2.1, calcium 8.4, phosphorus 2.6. ASSESSMENT: 1. Pulmonary infiltrates concerning for pneumonitis versus pulmonary edema. 2. Methicillin-sensitive Staphylococcus aureus bacteremia. 3. Left leg recent cellulitis. 4. Acute hypoxic and hypercapnic mixed respiratory failure. Status post positive pressure ventilation rescue. 5. Acute kidney injury. 6. Thrombocytopenia, improving. 7. Preserved left ventricular systolic function. 8. Extreme morbid obesity. 9. Hypertension and dyslipidemia. 10. Anemia. 11. Acute renal failure. PLAN: Continue diuretics. Patient seems to be improving from a respiratory standpoint; however, remains with diminished respiratory reserve. For now hold off on a transesophageal echocardiogram until respiratory status has been optimized. Continue antibiotics otherwise. Will follow closely. Job#: [id number] ELDA
[2017-09-08] MEDS: FAMOTIDINE 20 MG/2 ML VIAL IV SCH (16:38)
[2017-09-08] MEDS ORDERED: DIPHENOXYLATE/ATROPINE TAB PO PRN (17:00)
[2017-09-08] MEDS: ENOXAPARIN 30 MG/0.3 ML SYR SC SCH (21:21)
[2017-09-08] MEDS: METRONIDAZOLE 500MG/NS 100ML 100 ML IV SCH (23:57)
[2017-09-09] VITALS (83 sets, daily range): BP systolic 128–258; BP diastolic 62–123
[2017-09-09] MEDS: CEFAZOLIN SOD 1 GM VIAL IV SCH (05:00)
[2017-09-09 05:54] LABS: BASOPHILS # (AUTO) 0.1 (0.0-0.1); BASOPHILS % 0.3 % (0.0-1.0); EOSINOPHILS % 0.1 % (0.0-6.0); HEMATOCRIT 40.7 % (38.2-49.6); HEMOGLOBIN 13.3 g/dL (14.0-18.0); LYMPHOCYTES # (AUTO) 1.1 (1.0-3.2); LYMPHOCYTES % 7.1 % (18.0-39.1); MEAN CORPUSCULAR HEMOGLOBIN 29.6 pg (28-32); MEAN CORPUSCULAR HGB CONC 32.7 g/dL (31-35); MEAN CORPUSCULAR VOLUME 90.4 fL (81-99); MONOCYTES # (AUTO) 1.7 (0.2-0.8); MONOCYTES % 11.2 % (4.4-11.3); NEUTROPHILS # (AUTO) 11.5 (2.1-6.9); NEUTROPHILS % 76.1 % (38.7-80.0); PLATELET COUNT 194 x10e3/uL (140-360)
[2017-09-09] MEDS: FUROSEMIDE INJ 10 MG/ML 2 ML VIAL IV SCH (06:00)
[2017-09-09] MEDS: METRONIDAZOLE 500MG/NS 100ML 100 ML IV SCH ×2 (06:00→12:00)
[2017-09-09 06:46] LABS: ANION GAP 13.2 mmol/L (8-16); CALCIUM 8.6 mg/dL (8.4-10.2); CREATININE, SERUM 1.3 mg/dL (0.72-1.25); POTASSIUM 3.2 mmol/L (3.5-5.1)
[2017-09-09] MEDS: ALBUTEROL/IPRATROPIUM 3 ML NEB NEB PRN (07:24)
[2017-09-09] MEDS ORDERED: POTASSIUM CHLORIDE 20MEQ/100ML 200 ML IV ONE (07:45)
[2017-09-09 07:51] LABS: BAND NEUTROPHILS % (MANUAL) 1 %; LYMPHOCYTES % (MANUAL) 6 % (19-48); MONOCYTES % (MANUAL) 9 % (3.4-9.0); NEUTROPHILS % (MANUAL) 84 % (40-74); PLATELET ESTIMATE ADEQUATE; PLATELET MORPHOLOGY COMMENT NORMAL; RBC MORPHOLOGY COMMENT NORMAL
[2017-09-09] MEDS: ENOXAPARIN 30 MG/0.3 ML SYR SC SCH (09:04)
[2017-09-09] MEDS: FAMOTIDINE 20 MG/2 ML VIAL IV SCH ×2 (09:05→18:05)
[2017-09-09] MEDS: NYSTATIN 100,000 UNITS/GM CRM 30GM TUBE TOP SCH ×2 (09:05→18:05)
[2017-09-09] MEDS: ALBUTEROL/IPRATROPIUM 3 ML NEB NEB SCH ×2 (11:20→15:19)
[2017-09-09] MEDS: HYDRALAZINE HCL 20 MG/ML VIAL IV PRN ×2 (11:30→18:06)
--- NOTE | 2017-09-09 13:17 | Diagnostic Imaging Report ---
PROCEDURE: CHEST SINGLE (PORTABLE) COMPARISON: 09/08/2017. INDICATIONS: SOB FINDINGS: See conclusion CONCLUSION: #1. Stable position of right upper extremity PICC. 2. Progression of multifocal consolidations throughout both lungs compatible with multifocal pneumonia, possibly with superimposed alveolar pulmonary edema as previously discussed. Dictated by: Eloy Tena M.D. on 09/09/2017 at 13:19 Electronically approved by: Eloy Tena M.D. on 09/09/2017 at 13:19
--- NOTE | 2017-09-09 14:21 | Progress Note ---
DATE: September 09, 2017 PULMONARY MEDICINE PROGRESS NOTE SUBJECTIVE: Mr. Key was seen and examined at bedside. Overall he is not clearly better. He still has very limited respiratory reserve. He spontaneously sat up and tried to stand up for which he overworked himself and started breathing in the 50s. As of now, this occurred 20 minutes ago and he has not totally recovered. Patient's BiPAP is increased to 100% oxygen saturation. Kidney function continues to improve slowly. He is urinating a lot today; 2.3 liters in, 5.5 liters out once again. REVIEW OF SYSTEMS: No bleeding, no headache. OBJECTIVE VITAL SIGNS: Afebrile, vital signs noted per the chart record. GENERAL: No acute distress, he is working hard but he is not cyanotic. Neck muscles are being recruited actively as he is trying to recover from his dyspnea episode. He is not panicked however. HEENT: Normocephalic, atraumatic. NECK: Supple. LUNGS: Bilateral air entry, few rhonchi, decreased breath sounds. CARDIOVASCULAR: S1, S2. No murmurs, rubs, or gallops. ABDOMEN: Soft, nontender. EXTREMITIES: No clubbing, no cyanosis. There is trace edema. INTEGUMENT: No rash or purpura. LABS: Potassium 2.2, BUN 47, creatinine 1.3. White count 15, hematocrit 41, platelets 194. IMPRESSION/PLAN 1. Acute respiratory failure, attempting BiPAP salvage. 2. No cardiopulmonary endurance, evidenced by him trying to get up. 3. Morbid obesity. 4. Obstructive sleep apnea. 5. Methicillin-sensitive Staphylococcus aureus septicemia, source under evaluation. Possible pneumonia, rule out other. 6. Bilateral chest infiltrates, primary versus secondary lung injury. 7. Fluid overload whole body. 8. Acute kidney injury, slowly improving. Continue antibiotics at this time. Patient will need intubation if he does not recover. Will follow along closely. Patient instructions were discussed with him on mobility and activity level. Respiratory therapy and nurse were involved in discussion regarding the choice to intubate. Patient continues to have good urine output and will continue Lasix. I have also notified Adeola to request another dose if his urine output slows down. Will follow along closely. He has been given . Very poor condition. Will follow along closely. Job#: [id number] DG
[2017-09-09] MEDS ORDERED: SUCCINYLCHOLINE CHLORIDE 20 MG/ML 10ML VIAL ONE ×2 (14:43→18:51)
[2017-09-09] MEDS ORDERED: FLUMAZENIL 0.5MG/ 5ML VIAL ONE (14:43)
[2017-09-09] MEDS ORDERED: ETOMIDATE 2 MG/ML 10 ML INJ IV ONE (14:43)
--- NOTE | 2017-09-09 16:23 | Progress Note ---
DATE: September 09, 2017 CARDIOLOGY PROGRESS NOTE SUBJECTIVE: Patient continues to require BiPAP as he desaturates on high-flow nasal cannula. He denies any chest pain. OBJECTIVE VITAL SIGNS: Temperature 97.2 degrees, pulse 107, respiratory rate 34, blood pressure 168/82, oxygen saturation 85% on BiPAP. GENERAL: Morbidly obese gentleman in no acute distress on BiPAP. LUNGS: Clear to auscultation anterior lung arnold. No wheezes or crackles with decreased breath sounds at the bases. CARDIOVASCULAR: Normal rate, regular rhythm. Normal S1 and S2. ABDOMEN: Soft. EXTREMITIES: There is 1+ pitting edema of bilateral lower extremities. CARDIAC MEDICATIONS 1. Enoxaparin 30 mg subcutaneous q.12 h. 2. Furosemide 20 mg IV b.i.d. LABS: WBC 15.14, hemoglobin 13.3, hematocrit 40.7, platelets 194. Sodium 143, potassium 3.2, chloride 106, CO2 27, BUN 47, creatinine 1.3. TELEMETRY: Normal sinus rhythm. IMPRESSION 1. Pulmonary infiltrates concerning for pneumonitis versus pulmonary edema. 2. Methicillin-sensitive Staphylococcus aureus bacteremia. 3. Recent left leg cellulitis. 4. Acute hypoxic and hypercapnic mixed respiratory failure requiring positive-pressure ventilation rescue. 5. Acute kidney injury, improving. 6. Thrombocytopenia, improving. 7. Preserved left ventricular systolic function. 8. Extreme morbid obesity. 9. Hypertension. 10. Dyslipidemia. 11. Anemia. RECOMMENDATIONS: Continue current cardiac medications. Patient needs MARCY for further evaluation of his MSSA bacteremia. However, at this time, he is not a candidate due to his acute respiratory failure. Once respiratory status is improved, can discuss at that time. Antibiotics per infectious disease. Thank you for this consult. We will continue to follow. Job#: [id number]
[2017-09-09] MEDS ORDERED: BUMETANIDE INJ 0.25MG/ML 4ML VIAL IV STA (17:08)
[2017-09-09] MEDS ORDERED: METHYLPREDNISOLONE SOD SUCC 125 MG/2ML VIAL IV STA (17:09)
[2017-09-09] MEDS ORDERED: MAGNESIUM SULFATE 2GM/50ML 50 ML IV ONE (17:15)
[2017-09-09] MEDS ORDERED: SODIUM CHLORIDE 0.9% 1000ML 1,000 ML ONE (17:16)
[2017-09-09] MEDS ORDERED: SUCCINYLCHOLINE 200 MG/10 ML SYR IV ONE (18:53)
[2017-09-09] MEDS ORDERED: SODIUM BICARBONATE 8.4% SYRING 100 ML ONE (19:21)
[2017-09-09] MEDS ORDERED: EPINEPHRINE HCL SYRINGE ONE (19:23)
--- NOTE | 2017-09-09 20:31 | Diagnostic Imaging Report ---
EXAMINATION: CHEST SINGLE (PORTABLE) 09/09/2017 7:03 PM COMPARISON: Chest radiograph from 09/09/17 at 1307 hours. INDICATION: Pneumonia DISCUSSION: LINES: ET tube has been placed with distal tip approximately 0.5 cm proximal to the papa. Recommend withdrawing approximately 2 cm. NG/orogastric tube has also been placed, with distal tip not included. Right upper extremity PICC line with tip in the region of the SVC, unchanged LUNGS: Redemonstration of diffuse airspace disease. PLEURA: Small pleural effusions may be present HEART AND MEDIASTINUM: The cardiomediastinal silhouette is obscured. BONES AND SOFT TISSUES: No acute osseous lesion. IMPRESSION: 1. ET tube has been placed with distal tip approximately 0.5 cm proximal to the papa. Recommend withdrawing approximately 2 cm. 2. NG/orogastric tube has also been placed, with distal tip not included. 3. Bilateral diffuse airspace disease again is observed. Signed by: Dr. Chastity Alcaraz M.D. on 09/09/2017 8:28 PM
--- NOTE | 2017-09-09 20:47 | Progress Note ---
PULMONARY MEDICINE PROGRESS NOTE ADDENDUM SUBJECTIVE: Mr. Key was seen and examined at bedside. Over serial followups, patient was having continued dyspnea. Patient did not recover after his bout of excessive dyspnea. He continued to work hard and he started to feel tired. At that time, decision was made to intubate. The patient was given preload IV fluids given that he was being dried out with diuretics. Patient went for procedure and had intubation. However, patient did not sustain good oxygenation thereafter. Patient eventually went into cardiac arrest. After compression, confirmation of ET tube, aggressive treatment, it was deemed patient was not able to get return of spontaneous circulation. Patient eventually was pronounced by team here. As I discussed with family on previous days, patient had a high-risk intubation. It appears that he was not able to regain appropriate oxygenation thereafter. Emergency room doctor and anesthesiologist all present for this event as well as I who came after I was called. REVIEW OF SYSTEMS: Cannot get right now. IMPRESSION AND PLAN 1. Refractory hypoxemia. 2. Acute respiratory failure. 3. Methicillin-sensitive Staphylococcus aureus septicemia. 4. state. Please see DPR/ACLS sheet for details. Family was notified after the event. Greater than 30 minutes on direct care today over multiple visits. Job#: [id number] PABLO
[2017-09-09] MEDS ORDERED: CEFAZOLIN SOD 1 GM VIAL IV SCH (22:00)
== END 2017-09-09 22:45 | disposition expired | DRG 853 ==
LOC: ER 12:57 → ERHOLD 15:59 → EDBEDREQSVC 19:15 → ICU 20:19
PROVIDERS: ADMIT Internal Medicine; ATTEND Internal Medicine
PROC: 5A1935Z Respiratory Ventilation, Less than 24 Consecutive Hours (ICD-10-PCS; 2017-09-05)
PROC: 5A09457 Assistance with Respiratory Ventilation, 24-96 Consecutive Hours, Continuous Positive Airway Pressure (ICD-10-PCS; principal; 2017-09-09)
PROC: 5A02216 Assistance with Cardiac Output using Other Pump, Continuous (ICD-10-PCS; 2017-09-09)
PROC: 0BH17EZ Insertion of Endotracheal Airway into Trachea, Via Natural or Artificial Opening (ICD-10-PCS; 2017-09-09)
DX: A41.01 Sepsis due to Methicillin susceptible Staphylococcus aureus (principal); J96.02 Acute respiratory failure with hypercapnia; J96.01 Acute respiratory failure with hypoxia; J18.9 Pneumonia, unspecified organism; N17.0 Acute kidney failure with tubular necrosis; M62.82 Rhabdomyolysis; E87.2 Acidosis; Z68.44 Body mass index [BMI] 60.0-69.9, adult; K56.7 Ileus, unspecified; E66.01 Morbid (severe) obesity due to excess calories; R09.02 Hypoxemia; I10 Essential (primary) hypertension; J44.9 Chronic obstructive pulmonary disease, unspecified; E86.0 Dehydration; E78.5 Hyperlipidemia, unspecified; D69.6 Thrombocytopenia, unspecified; D64.9 Anemia, unspecified; G47.33 Obstructive sleep apnea (adult) (pediatric); K76.0 Fatty (change of) liver, not elsewhere classified; Z91.013 Allergy to seafood; R19.7 Diarrhea, unspecified
CPT/HCPCS: 31500; 36415; 36569; 36600; 51700; 71045; 71046; 71250; 74176; 76700; 76770; 80048; 80053; 80202; 81001; 82550; 82553; 82607; 82728; 82746; 82805; 83036; 83540; 83605; 83735; 83880; 84100; 84443; 84466; 84484; 85025; 85045; 85610; 85651; 85730; 86140; 87040; 87071; 87086; 87186; 87205; 87400; 87493; 92950; 93005; 93306; 94640; 94660; 96367; 96372; 96375; 96376; 99284; J0171; J0330; J0360; J0456; J0690; J0696; J1450; J1650; J1940; J2930; J3370; J3480; J7030; J7040; J7050; J7070